=== PATIENT | female | born 2000 | race Two or more races ===

== ENCOUNTER 2022-03-25 03:43 | Emergency (ER) | payer SELFPAY ==
[2022-03-25] MEDS ORDERED: Bacitracin Oint 1 GM U/D Packet TOP ONE (04:06)
[2022-03-25] MEDS ORDERED: Lidocaine 1% 5 ML VIAL INJECT ONE (04:06)
[2022-03-25] MEDS ORDERED: Diphtheria,Pertussis(Acell),Tetanus Vaccine 0.5 ML Syringe IM ONE (04:08)
== END 2022-03-25 09:46 | disposition home or self-care (01) ==
LOC: JP.ED 03:43
DX: S51.812A Laceration without foreign body of left forearm, initial encounter (principal); F17.210 Nicotine dependence, cigarettes, uncomplicated; W26.8XXA Contact with other sharp object(s), not elsewhere classified, initial encounter
CPT/HCPCS: 12004; 90471; 90715; 99282; 99284-25

== ENCOUNTER 2022-09-17 23:50 | Emergency (ER) | payer MEDICAID ==
[2022-09-18] MEDS ORDERED: Bacitracin Oint 1 GM U/D Packet TOP ONE (00:11)
[2022-09-18] MEDS ORDERED: Lidocaine 1% 10 ML MDV INJECT ONE (00:11)
[2022-09-18] MEDS ORDERED: Sodium Chloride 0.9% 1,000 ML IV SCH ×2 (00:15→02:15)
[2022-09-18 00:36] LABS: ESTIMATED GFR 132 mL/min (>60)
== END 2022-09-18 13:24 ==
LOC: JP.ED 23:50
DX: S11.91XA Laceration without foreign body of unspecified part of neck, initial encounter (principal); S41.111A Laceration without foreign body of right upper arm, initial encounter; S01.01XA Laceration without foreign body of scalp, initial encounter; S01.112A Laceration without foreign body of left eyelid and periocular area, initial encounter; F19.10 Other psychoactive substance abuse, uncomplicated; Z20.822 Contact with and (suspected) exposure to COVID-19; X78.9XXA Intentional self-harm by unspecified sharp object, initial encounter
CPT/HCPCS: 12001; 12014; 36415; 80053; 80305; 80307; 81001; 85025; 87635; 96360; 99285; J7030; U0002

== ENCOUNTER 2023-05-12 02:24 | Emergency (ER) | payer MEDICAID ==
[2023-05-12] MEDS ORDERED: Bacitracin Oint 1 GM U/D Packet TOP ONE (03:00)
== END 2023-05-12 11:24 | disposition home or self-care (01) ==
LOC: JP.ED 02:24
DX: S51.812A Laceration without foreign body of left forearm, initial encounter (principal); F10.129 Alcohol abuse with intoxication, unspecified; F91.8 Other conduct disorders; Z79.899 Other long term (current) drug therapy; X78.1XXA Intentional self-harm by knife, initial encounter
CPT/HCPCS: 12004; 99284

== ENCOUNTER 2024-09-21 02:06 | Emergency (ER) | payer MEDICAID ==
[2024-09-21 03:10] LABS: BASOPHILS ABSOLUTE AUTO 0.05 K/uL (0.00-0.10); BASOPHILS PERCENT AUTO 0.4 % (0.1-1.3); EOSINOPHILS ABSOLUTE AUTO 0.22 K/uL (0.00-0.40); EOSINOPHILS PERCENT AUTO 1.9 % (0.0-5.4); HEMATOCRIT 35.5 % (34.3-46.0); HEMOGLOBIN 11.3 g/dL (11.2-15.5); IMMATURE GRAN ABSOLUTE AUTO 0.05 K/uL (0.00-0.23); IMMATURE GRAN PERCENT AUTO 0.4 % (0.0-0.7); LYMPHOCYTES ABSOLUTE AUTO 1.53 K/uL (0.8-3.3); LYMPHOCYTES PERCENT AUTO 13.1 % (11.4-47.7); MEAN CORPUSCULAR HEMOGLOBIN 25.1 pg (31.6-35.5); MEAN CORPUSCULAR HGB CONC 31.8 g/dL (31.6-35.5); MEAN CORPUSCULAR VOLUME 78.9 fL (81.4-99.0); MONOCYTES ABSOLUTE AUTO 0.62 K/uL (0.20-0.90); MONOCYTES PERCENT AUTO 5.3 % (3.3-12.6); NEUTROPHILS ABSOLUTE AUTO 9.17 K/uL (1.0-7.6); NEUTROPHILS PERCENT AUTO 78.9 % (40.0-78.1); PLATELET COUNT,PLT 332 K/uL (130-375); WHITE BLOOD CELL COUNT,WBC 11.6 K/uL (3.2-11.0)
[2024-09-21 03:27] LABS: A/G RATIO 0.9 (1.2-2.2); ALANINE AMINOTRANSFERASE,ALT 20 U/L (12-78); ALBUMIN 3.4 g/dL (3.4-5.0); ALKALINE PHOSPHATASE 69 U/L (46-116); ASPARTATE AMNIOTRANSFERASE,AST 27 U/L (15-37); BILIRUBIN TOTAL 0.2 mg/dL (0.2-1.0); BLOOD UREA NITROGEN,BUN 6 mg/dL (7-18); CALCIUM 7.8 mg/dL (8.5-10.1); CARBON DIOXIDE,CO2 27 mmol/L (21-32); CHLORIDE,CL 110 mmol/L (100-108); CREATININE 0.8 mg/dL (0.6-1.0); EST CRCL DRUG DOSING (CG) 95.25 mL/min; ESTIMATED GFR 107 mL/min (>60); GLUCOSE RANDOM 86 mg/dL (74-106); POTASSIUM,K 3.2 mmol/L (3.6-5.2); PROTEIN TOTAL,TP 7.2 g/dL (6.4-8.2); SODIUM,NA 146 mmol/L (140-148)
[2024-09-21 03:29] LABS: ANION GAP 12.2 mmol/L (5.0-14.0)
[2024-09-21 03:32] LABS: AMPHETAMINES SCREEN, URINE NEGATIVE (NEGATIVE); BARBITURATE SCREEN,URINE NEGATIVE (NEGATIVE); BENZODIAZEPINES SCREEN,URINE NEGATIVE (NEGATIVE); METHADONE SCREEN, URINE NEGATIVE (NEGATIVE); METHAMPHETAMINES SCREEN, URINE NEGATIVE (NEGATIVE); OXYCODONE SCREEN,URINE NEGATIVE (NEGATIVE); PROPOXYPHENE SCREEN,URINE NEGATIVE (NEGATIVE); THC SCREEN,URINE 50 NG/ML PRESUMPTIVE POSITIVE (NEGATIVE)
[2024-09-21] MEDS ORDERED: Sodium Chloride 0.9% 1,000 ML IV SCH (08:00)
== END 2024-09-21 13:03 | disposition home or self-care (01) ==
LOC: JP.ED 02:06
DX: F10.129 Alcohol abuse with intoxication, unspecified (principal); Y90.7 Blood alcohol level of 200-239 mg/100 ml; Z79.899 Other long term (current) drug therapy
CPT/HCPCS: 36415; 80053; 80143; 80179; 80305-QW; 80307; 84703; 85025; 99284; 99285

== ENCOUNTER 2024-10-14 01:57 | Emergency (ER) | payer MEDICAID ==
[2024-10-14] MEDS ORDERED: Sodium Chloride 0.9% 10 ML Syringe FLUSH PRN (02:03)
[2024-10-14] MEDS: diphenhydrAMINE 50 MG/ML SDV IVPUSH ONE (02:14)
[2024-10-14] MEDS: methylPREDNISolone Sodium Succinate 125 MG/2 ML SDV IVPUSH ONE (02:14)
[2024-10-14] MEDS: Famotidine 20 MG/2 ML SDV IVPUSH ONE (02:14)
== END 2024-10-14 03:40 | disposition home or self-care (01) ==
LOC: JP.ED 01:57
DX: T78.40XA Allergy, unspecified, initial encounter (principal)
CPT/HCPCS: 96374; 96375; 99283-25; J1200; J2919

== ENCOUNTER 2025-05-13 00:16 | Emergency (ER) | payer SELFPAY ==
[2025-05-13 00:31] LABS: BASOPHILS ABSOLUTE AUTO 0.07 K/uL (0.00-0.10); BASOPHILS PERCENT AUTO 0.5 % (0.1-1.3); EOSINOPHILS ABSOLUTE AUTO 0.21 K/uL (0.00-0.40); EOSINOPHILS PERCENT AUTO 1.4 % (0.0-5.4); IMMATURE GRAN ABSOLUTE AUTO 0.14 K/uL (0.00-0.23); IMMATURE GRAN PERCENT AUTO 1.0 % (0.0-0.7); LYMPHOCYTES ABSOLUTE AUTO 1.07 K/uL (0.8-3.3); LYMPHOCYTES PERCENT AUTO 7.4 % (11.4-47.7); MONOCYTES ABSOLUTE AUTO 0.98 K/uL (0.20-0.90); MONOCYTES PERCENT AUTO 6.8 % (3.3-12.6); NEUTROPHILS ABSOLUTE AUTO 12.02 K/uL (1.0-7.6); NEUTROPHILS PERCENT AUTO 82.9 % (40.0-78.1); PLATELET COUNT,PLT 296 K/uL (130-375); RED BLOOD CELL COUNT 5.00 M/uL (3.77-5.24); WHITE BLOOD CELL COUNT,WBC 14.5 K/uL (3.2-11.0)
[2025-05-13] MEDS: Lidocaine 1% with EPINEPHrine 1:100,000 50 ML MDV SUBCUT STA (00:38)
[2025-05-13] MEDS: Bacitracin Oint 1 GM U/D Packet TOP ONE (00:39)
[2025-05-13] MEDS: Lidocaine/Epineph/Tetracaine 3 ML Syringe TOP ONE (00:39)
[2025-05-13 01:04] LABS: ALANINE AMINOTRANSFERASE,ALT 35 U/L (12-78); ASPARTATE AMNIOTRANSFERASE,AST 26 U/L (15-37); BILIRUBIN TOTAL 0.2 mg/dL (0.2-1.0); BLOOD UREA NITROGEN,BUN 4 mg/dL (7-18); CARBON DIOXIDE,CO2 23 mmol/L (21-32); CHLORIDE,CL 107 mmol/L (100-108); CREATININE 0.8 mg/dL (0.6-1.0); EST CRCL DRUG DOSING (CG) 79.23 mL/min; ESTIMATED GFR 107 mL/min (>60); GLUCOSE RANDOM 96 mg/dL (74-106); POTASSIUM,K 3.6 mmol/L (3.6-5.2); PROTEIN TOTAL,TP 7.8 g/dL (6.4-8.2); SODIUM,NA 143 mmol/L (140-148)
[2025-05-13 01:05] LABS: A/G RATIO 1.0 (1.2-2.2)
[2025-05-13 08:25] LABS: AMPHETAMINES SCREEN, URINE NEGATIVE (NEGATIVE); METHADONE SCREEN, URINE NEGATIVE (NEGATIVE); METHAMPHETAMINES SCREEN, URINE NEGATIVE (NEGATIVE); OXYCODONE SCREEN,URINE NEGATIVE (NEGATIVE); PROPOXYPHENE SCREEN,URINE NEGATIVE (NEGATIVE); THC SCREEN,URINE 50 NG/ML PRESUMPTIVE POSITIVE (NEGATIVE)
== END 2025-05-13 18:12 ==
LOC: JP.ED 00:16
DX: F32.A Depression, unspecified (principal); F10.10 Alcohol abuse, uncomplicated
CPT/HCPCS: 12004; 36415; 80053; 80143; 80179; 80305; 80307; 84443; 84703; 85025; 99285; A9270